=== PATIENT | female | born 1960 | race African-American/Black ===

== ENCOUNTER → 2018-04-12 | Outpatient (CLI) | payer BC ==
[~2018-04-12] MED LIST: GLUCOPHAGE500 MG/TAB PO; GLUCOPHAGE850 MG/TAB PO; IPRATROPIUM BROM3 M1 IH; LEVAQUIN 750MG750 M1 PO; PREDNISONE20 MG PO; PRINZIDE 12.5 M1 TAB PO; PROAIR HFA0.09 MG/AC IH
== END ==
LOC: MC.RAD 10:20
DX: Z12.31 Encounter for screening mammogram for malignant neoplasm of breast (principal); E65 Localized adiposity

== ENCOUNTER → 2018-12-07 | Outpatient (CLI) | payer OTHER | LOC: MC.RAD 14:00 | DX: N63.21 Unspecified lump in the left breast, upper outer quadrant (principal) ==

== ENCOUNTER → 2019-04-01 | Outpatient (CLI) | payer OTHER | LOC: MC.RAD 12:48 | DX: N64.89 Other specified disorders of breast (principal); N63.21 Unspecified lump in the left breast, upper outer quadrant; R22.2 Localized swelling, mass and lump, trunk | CPT/HCPCS: G0279 ==

== ENCOUNTER 2019-04-17 07:13 | Day surgery (SDC) | payer OTHER ==
[2019-04-17] VITALS (9 sets, daily range): BP systolic 102–195; BP diastolic 44–105; PULSE 70–81
[~2019-04-17] VITALS: Ht 160 cm; Wt 115.9 kg
[2019-04-17] MEDS ORDERED: WOMEN'S DAILY1 TAB PO (07:33)
[2019-04-17] MEDS ORDERED: ASPIRIN 81M81 MG/TA2 PO (07:34)
[2019-04-17] MEDS ORDERED: NORVASC 10MG10 MG PO (07:44)
[2019-04-17 08:03] LABS: HEMATOCRIT 40.7 % (37.0-47.0); HEMOGLOBIN 12.8 g/dl (12.5-16.0); MEAN CELL VOLUME 81 fl (80.0-100.0); MEAN CORPUSCULAR HEMOGLOBIN 25 pg (27.0-31.0); MEAN CORPUSCULAR HGB CONC 31 g/dl (33.0-37.0); MEAN PLATELET VOLUME 10.8 fl (7.4-10.4); PLATELET COUNT 267 K/mm3 (130-400); RED BLOOD COUNT 5.03 M/mm3 (4.10-5.30); REDCELL DISTRIBUTION WIDTH-CV 12.6 % (11.5-14.5)
[2019-04-17 08:08] LABS: PROTHROMBIN TIME 12.1 SECONDS (9.7-12.8)
[2019-04-17 08:29] LABS: CALCIUM 9.4 mg/dL (8.4-10.2); CREATININE, serum 0.69 (0.52-1.25); POTASSIUM 4.3 mmol/L (3.4-5.0)
--- NOTE | 2019-04-17 09:12 | NUR ---
SEE MERGE REPORTS FOR MEDICATION ADMINISTRATION TIMES AND INTRA/POST PROCEDURE ASSESSMENTS.
[2019-04-17] MEDS ORDERED: SINGULAIR 110 MG/TAB PO (09:52)
--- NOTE | 2019-04-17 10:15 | NUR ---
Pt arrived back to express room 14 from [employer]. She is awake and A/Ox4. She denies pain at this time. Right wrist radial site is free of complications. Site is soft and free of hematoma. Pt urinated without difficulty. Drinking water and is ordering food. Son at bedside.
--- NOTE | 2019-04-17 11:44 | NUR ---
5 mL of air released from TR band. No s/s of active bleeding noted. Right radial site remains soft and free of hematoma.
--- NOTE | 2019-04-17 12:30 | NUR ---
Remainder of air released from TR band. No s/s of bleeding. Site remains soft and free of hematoma. Pt ate 100% of lunch. Awaiting son for discharge.
--- NOTE | 2019-04-17 13:06 | NUR ---
All discharge instructions and paperwork was reviewed with pt who expressed understanding. Saline lock removed, catheter tip intact
== END 2019-04-17 16:00 | disposition home or self-care (01) ==
LOC: COL.CAR 07:13
PROVIDERS: Internal Medicine Cardiovascular Disease
DX: R94.39 Abnormal result of other cardiovascular function study (principal); R06.02 Shortness of breath; I10 Essential (primary) hypertension; E03.9 Hypothyroidism, unspecified; J44.9 Chronic obstructive pulmonary disease, unspecified; E66.01 Morbid (severe) obesity due to excess calories; Z68.41 Body mass index [BMI] 40.0-44.9, adult; E11.9 Type 2 diabetes mellitus without complications; Z87.891 Personal history of nicotine dependence; Z90.710 Acquired absence of both cervix and uterus; Z88.0 Allergy status to penicillin; Z83.3 Family history of diabetes mellitus; Z82.5 Family history of asthma and other chronic lower respiratory diseases; Z82.49 Family history of ischemic heart disease and other diseases of the circulatory system; Z79.84 Long term (current) use of oral hypoglycemic drugs; Z79.899 Other long term (current) drug therapy; Z86.19 Personal history of other infectious and parasitic diseases
CPT/HCPCS: J1200; J1644; J2250; J3010; Q9967

== ENCOUNTER → 2020-06-05 | Outpatient (CLI) | payer OTHER ==
[~2020-06-05] MED LIST changes: +ASPIRIN 81M81 MG/TA2 PO; +NORVASC 10MG10 MG PO; +SINGULAIR 110 MG/TAB PO; +WOMEN'S DAILY1 TAB PO
== END ==
LOC: MC.RAD 10:54
DX: Z12.31 Encounter for screening mammogram for malignant neoplasm of breast (principal)

== ENCOUNTER → 2021-07-27 | Outpatient (CLI) | payer BC | LOC: MC.RAD 07-23 10:45 | DX: Z12.31 Encounter for screening mammogram for malignant neoplasm of breast (principal) ==